=== PATIENT | male | born 1970 | race African-American/Black ===

== ENCOUNTER 2025-07-15 12:10 | Emergency (ER) | payer OTHER, SELFPAY ==
[2025-07-15 12:10] VITALS: BP 185/110; BP 192/106; PULSE 67; RESP 14; TEMP 36.6; O2SAT 98; BMI 29.9
--- NOTE | 2025-07-15 14:05 | EX.ED.DYSGE1 ---
HPI <Dr. Antoine Jones, DO - Last Filed: 07/15/25 15:14> History of Present Illness Chief Complaint: Lower Extremity Injury Narrative Narrative: Chief complaint and HPI: 55-year-old male with past medical history of HTN with recent move to [place] from [place] presents for evaluation of intermittent paresthesias of the left lower extremity. Patient states he is supposed to be on losartan-hydrochlorothiazide 50 mg-12.5 mg pill daily for his high blood pressure however he has been out of it for several weeks. States for the past several weeks he has been having intermittent paresthesias in the left lower extremity. Does not know for sure if it correlates with his blood pressure however he feels that his blood pressure is contributing. He denies any injury or trauma. Denies any back pain. States the paresthesias were present today which he describes as a IcyHot feeling. States it called a twinge in his knee that caused him to almost fall. He denies any pain or swelling in the lower extremity. Denies any weakness. Denies any urinary or stool incontinence/retention. He denies any fever, chills, shortness of breath, chest pain, abdominal pain, nausea, vomiting, headache. Has not followed with a primary care physician since moving from [place]. Review of systems: See HPI Medications: As listed on the chart Allergies: As listed on the chart PFSH: Per chart Vital signs: As listed on the chart. Reviewed. Physical exam: Gen: A&O x3, NAD Head: Normocephalic, atraumatic Eyes: No sclera icterus, conjunctiva clear, PERRL ENT: Moist mucous membranes Neck: Trachea midline, No JVD CV: RRR, no murmurs, no peripheral edema Resp: Lungs CTA BL, no w/r/c GI: Abd soft, non-distended, non-tender, no r/r/g Musc: Full ROM, no deformity, strength 5 out of 5 in bilateral lower extremities, femoral/DP/PT pulses +2 bilaterally, no tenderness or swelling to the left lower extremity, good capillary refill, compartments soft, no midline spinal tenderness, no bony step-offs, back nontender to palpation diffusely Skin: Warm, dry, no rash Neuro: Alert, oriented, grossly intact, sensation intact Psych: Cooperative, appropriate mood and affect PFSH <Dr. Antoine oJnes, DO - Last Filed: 07/15/25 15:14> [facility] Home Medications ?Medication ?Instructions ?Recorded ?Last Taken ?Type losartan 50 mg-hydrochlorothiazide 1 tab PO DAILY #30 tabs 07/15/25 Unknown Rx 12.5 mg tablet Allergy/AdvReac Type Severity Reaction Status Date / Time No Known Allergies Allergy Verified 07/15/25 12:11 Social History Smoking Status: Never smoker EXAM <Dr. Antoine Jones, - Last Filed: 07/15/25 15:14> Physical Exam Const Vital Signs: 07/15/25 12:10 07/15/25 12:10 07/15/25 14:10 Temperature 98 F Temperature Source Temporal Pulse Rate 67 78 Respiratory Rate 14 16 Blood Pressure 192/106 H 185/110 H 166/11 H Blood Pressure Mean 134 135 62 Pulse Ox 98 98 Oxygen Delivery Method Room Air 07/15/25 15:09 07/15/25 16:00 Temperature Temperature Source Pulse Rate 61 71 Respiratory Rate 18 16 Blood Pressure 166/109 H 167/100 H Blood Pressure Mean 128 122 Pulse Ox 100 100 Oxygen Delivery Method Room Air Room Air <Dr. Kevin Pedraza MD - Last Filed: 07/15/25 17:09> Physical Exam Const Vital Signs: 07/15/25 12:10 07/15/25 12:10 07/15/25 14:10 Temperature 98 F Temperature Source Temporal Pulse Rate 67 78 Respiratory Rate 14 16 Blood Pressure 192/106 H 185/110 H 166/11 H Blood Pressure Mean 134 135 62 Pulse Ox 98 98 Oxygen Delivery Method Room Air 07/15/25 15:09 07/15/25 16:00 Temperature Temperature Source Pulse Rate 61 71 Respiratory Rate 18 16 Blood Pressure 166/109 H 167/100 H Blood Pressure Mean 128 122 Pulse Ox 100 100 Oxygen Delivery Method Room Air Room Air MDM <Dr. Antoine Jones, DO - Last Filed: 07/15/25 15:14> MDM MDM Narrative Medical decision making narrative: 55-year-old male with past medical history of HTN with recent move to [place] from [place] presents for evaluation of intermittent paresthesias of the left lower extremity. Patient states he is supposed to be on losartan-hydrochlorothiazide 50 mg-12.5 mg pill daily for his high blood pressure however he has been out of it for several weeks. States for the past several weeks he has been having intermittent paresthesias in the left lower extremity. Does not know for sure if it correlates with his blood pressure however he feels that his blood pressure is contributing. He denies any injury or trauma. Denies any back pain. He denies any pain or swelling in the lower extremity. Denies any weakness. Denies any urinary or stool incontinence/retention. He denies any fever, chills, shortness of breath, chest pain, abdominal pain, nausea, vomiting, headache. On presentation, patient no acute distress. Vitals are stable other than hypertension. Physical exam is unremarkable. Differential diagnosis includes but is not limited to hypertension urgency, hypertensive emergency, electrolyte abnormality, thyroid disease, paresthesias, suspect less likely DVT. I do not think any x-ray of the lower extremity is needed. HTN workup ordered including venous duplex ultrasound. Venous but duplex ultrasound negative for DVT. Hydralazine ordered for hypertension. Blood pressure improving with hydralazine. CBC without leukocytosis or anemia. EKG: Interpreted by me/EM physician: EKG shows sinus bradycardia with LVH. Nonspecific ST changes. Heart rate 57. Do not previous EKG to compare to. Diagnostic: Interpreted by me/EM physician: Chest x-ray without pneumonia, effusion, cardiomegaly, pneumothorax Patient signed out to oncoming physician Dr. Pedraza. Final disposition pending results. Lab Data Labs: Laboratory Results - last 24 hr 07/15/25 07/15/25 14:43 16:27 WBC 5.7 RBC 4.79 Hgb 14.4 Hct 42.1 MCV 87.9 MCH 30.1 MCHC 34.2 RDW Std Deviation 39.3 RDW Coeff of Selena 12.2 Plt Count 249 MPV 10.3 Immature Gran % (Auto) 0.200 Neut % (Auto) 45.5 L Lymph % (Auto) 45.3 H [place] % (Auto) 6.5 Eos % (Auto) 2.1 Baso % (Auto) 0.4 Absolute Neuts (auto) 2.6 Absolute Lymphs (auto) 2.57 Nucleated RBC % 0 PT 12.6 INR 0.9 APTT 30.5 Sodium 138 Potassium 3.5 Chloride 101 Carbon Dioxide 24.9 Anion Gap 12 BUN 10 Creatinine 1.07 Estim Creat Clear Calc 82.70 Est GFR (MDRD) Non-Af 81 BUN/Creatinine Ratio 9.3 L Glucose 80 Calcium 9.2 Magnesium 2.4 H Troponin T High Sens 14 Troponin T Hi Sens 2 Hr 14 NT pro BNP II 52 TSH 0.958 Radiography Diagnostic Testing: Clinical Impression(s) from Imaging Studies Chest X-Ray 07/15/25 14:52 IMPRESSION: No acute pulmonary process Reading Location: [id number] <Dr. Kevin Pedraza MD - Last Filed: 07/15/25 17:09> [facility] Lab Data Attestation: I reviewed the patient's lab results. Lab results narrative: CBC is unremarkable. There is a slight lymphocytosis. Coags are normal. Basic metabolic panel is normal. Magnesium is slightly elevated 2.4. Troponin is normal. BNP is normal. TSH is normal. Awaiting results of second troponin, 1619. Labs: Laboratory Results - last 24 hr 07/15/25 07/15/25 14:43 16:27 WBC 5.7 RBC 4.79 Hgb 14.4 Hct 42.1 MCV 87.9 MCH 30.1 MCHC 34.2 RDW Std Deviation 39.3 RDW Coeff of Selena 12.2 Plt Count 249 MPV 10.3 Immature Gran % (Auto) 0.200 Neut % (Auto) 45.5 L Lymph % (Auto) 45.3 H [place] % (Auto) 6.5 Eos % (Auto) 2.1 Baso % (Auto) 0.4 Absolute Neuts (auto) 2.6 Absolute Lymphs (auto) 2.57 Nucleated RBC % 0 PT 12.6 INR 0.9 APTT 30.5 Sodium 138 Potassium 3.5 Chloride 101 Carbon Dioxide 24.9 Anion Gap 12 BUN 10 Creatinine 1.07 Estim Creat Clear Calc 82.70 Est GFR (MDRD) Non-Af 81 BUN/Creatinine Ratio 9.3 L Glucose 80 Calcium 9.2 Magnesium 2.4 H Troponin T High Sens 14 Troponin T Hi Sens 2 Hr 14 NT pro BNP II 52 TSH 0.958 Repeat troponin is normal with a delta of 0. Radiography Diagnostic Testing: Clinical Impression(s) from Imaging Studies Chest X-Ray 07/15/25 14:52 IMPRESSION: No acute pulmonary process Reading Location: [facility] Treatment and Re-Evaluation :: Per discussion with warning physician reviewed labs. If normal at discharge. Comments:: Since there is no evidence of endorgan dysfunction plan is to discharge to home. Patient states his prescription ran out and he does not have refills. He recently moved from [place]. Prescription for losartan 50 hydrochlorothiazide 12.5 was written for. Discharge Plan Triage Chief Complaint: Lower Extremity Injury ED Provider: Antoine Jones Dx/Rx/DC Orders Clinical Impression: Paresthesia of both lower extremities, Hypertension Instructions: ED Hypertension, Established, ED Paresthesia Prescriptions: New losartan-hydrochlorothiazide 50-12.5 mg tablet 1 tab PO DAILY Qty: 30 1RF Primary Care Provider: Care Physician,No Primary Referrals: Shashi Guzman MD [Med Staff - Outdoor Education Teacher, Family Practice] - 1-2 Weeks Care Physician,No Primary [Primary Care Provider, Medical] Activity Restrictions/Additional Instructions: Since you do not have a doctor listed you were referred to Dr. Shashi Longoria. Print Language: Tajik Disposition Disposition: Home, Self Care
--- NOTE | 2025-07-15 14:06 | VDLE_ITS ---
Reason For Study Reason For Study: LLE Pain Procedure LEFT This is a venous duplex using B-mode, color flow and GSV is normal. spectral Doppler. CFV is compressible, spontaneous, phasic, competent, Exam performed portable in ED. and demonstrates normal augmentation. The exam was diagnostic. FV is compressible, spontaneous, phasic, competent A preliminary report was called and/or faxed to and demonstrates normal augmentation. Myah Jerry. POP V is compressible, spontaneous, phasic, competent and demonstrates normal augmentation. T/P Trunk is compressible. PTV is compressible. LT PerV is compressible. VL/Venous Duplex US, Unilateral Interpretation Summary Deep veins of the left lower extremity are patent and compressible segmentally. There is no evidence of left lower extremity deep vein thrombosis. Valvular competence appears intact within the p roximal deep venous system on the left . The left great saphenous vein appears patent and compressible segmentally. Ordering Physician: Antoine Jones Referring Physician: N/A Performed By: Nestor Doty RVT
--- NOTE | 2025-07-15 14:07 | EKG12_ITS ---
Test Reason : GENERAL Blood Pressure : */* mmHG Vent. Rate : 57 BPM Atrial Rate : 57 BPM P-R Int : 164 ms QRS Dur : 90 ms QT Int : 446 ms P-R-T Axes : -16 -27 -4 degrees QTcB Int : 434 ms Sinus bradycardia Moderate voltage criteria for LVH, may be normal variant ( R in aVL , [place] product ) Nonspecific T wave abnormality Abnormal ECG Confirmed by Charbel Gutierrez ([id number]), staff editor ROSY MONSIVAIS ([id number]) on 07/16/2025 9:03:49 AM Referred By: Confirmed By: Charbel Gutierrez
[2025-07-15 14:10] VITALS: BP 166/11; PULSE 78; RESP 16; O2SAT 98
[2025-07-15 14:50] LABS: Hematocrit 42.1 % (40-54); Hemoglobin 14.4 g/dL (13.0-16.5); Immature Granulocytes Count 0.010 X10^3/uL (0.0-0.0); Mean Corp Hgb Conc 34.2 g/dL (32-36); Mean Corpuscular Volume 87.9 fL (80-94); Mean Platelet Vol. 10.3 fl (6.2-12.0); NRBC Flagged by Analyzer 0 % (0-5); Platelet Count 249 K/mm3 (150-450); RBC Distribution Width CV 12.2 % (11.6-14.6); RBC Distribution Width SD 39.3 fl (35.1-43.9); Red Blood Count 4.79 M/mm3 (4.6-6.2); White Blood Count 5.7 K/mm3 (4.4-11.0)
--- NOTE | 2025-07-15 14:52 | RAD_ITS ---
PROCEDURE: CHEST PA AND LATERAL 07/15/2025 REASON FOR EXAM: HTN TECHNIQUE: Procedure Code: RADCXR Modality: DX Procedure: CHEST PA AND LATERAL COMPARISON: None FINDINGS: Hardware: None Heart: The heart size is normal. Mediastinum: The mediastinal contour is unremarkable. Lungs: The lungs are clear. Bones: The bones are unremarkable. RAD/Chest PA and Lateral IMPRESSION: No acute pulmonary process Reading Location: [id number]
--- NOTE | 2025-07-15 15:03 | CM.ED ---
Social Work Reason for visit: No PCP Patient verified that he does not currently have a PCP as he has recently moved into the area. [facility] provider list given. Patient also requesting information on rrt which was also part of information provided. No further needs identified at this time. Padmini Soares, BRAND MARKETING MANAGER, [employer] CHLORIDE HELPER
[2025-07-15 15:09] VITALS: BP 166/109; PULSE 61; RESP 18; O2SAT 100
[2025-07-15 15:44] LABS: Prothrombin Time (Protime)PT. 12.6 SECONDS (11.7-14.9)
[2025-07-15 15:45] LABS: Partial Thromboplast Time 30.5 Seconds (24.1-36.2); Troponin T High Sensitivity 14 ng/L (<=22)
[2025-07-15 15:53] LABS: Magnesium 2.4 mg/dL (1.5-2.2); Pro- Brain NATRIURETIC PEPTIDE 52 pg/mL (<=900)
[2025-07-15 15:54] LABS: Anion Gap 12 (5-15); BUN 10 mg/dL (4-19); BUN/Creat Ratio 9.3 RATIO (10-20); Calcium,Total 9.2 mg/dL (7.6-11.0); Carbon Dioxide 24.9 mmol/L (21.0-32.0); Chloride 101 mmol/L (98-108); Estimated Creatinine Clearance 82.70 ml/min (50-250); Glucose 80 mg/dL (70-99); Potassium 3.5 mmol/L (3.3-5.1)
[2025-07-15 16:00] VITALS: BP 167/100; PULSE 71; RESP 16; O2SAT 100
[2025-07-15 16:51] LABS: Troponin T High Sens 2 HR 14 ng/L (<=22)
[2025-07-15 17:13] VITALS: BP 165/102; PULSE 72; RESP 16; TEMP 36.7; O2SAT 98
== END 2025-07-15 17:17 | disposition home or self-care (01) ==
PROVIDERS: Emergency Provider Surgery; Visit Provider Surgery
DX: R20.2 Paresthesia of skin (principal); I10 Essential (primary) hypertension; Z79.899 Other long term (current) drug therapy
CPT/HCPCS: 71046; 80048; 83735; 83880; 84443; 84484; 85025; 85610; 85730; 93005; 93971; 96374; 99284; A4216